=== PATIENT | female | born 1995 | race Caucasian/White ===

== ENCOUNTER 2020-06-14 08:44 | Emergency (ER) | payer OTHER, MEDICAID, SELFPAY ==
[2020-06-14 08:54] VITALS: BP 151/100; PULSE 114; RESP 19; TEMP 36.8; O2SAT 100; BMI 21.4
--- NOTE | 2020-06-14 09:18 | ED_ITS ---
HPI - Ear Problem General Chief complaint: Ear Stated complaint: left ear infection x1 week/has drops Time Seen by Provider: 06/14/20 09:09 Source: patient Mode of arrival: Ambulatory Limitations: no limitations History of Present Illness HPI Narrative: Patient is a 25-year-old female who presents with left ear pain ongoing for 1 week. She initially was seen and evaluated at [facility] for otitis externa and she was started on ear drops on June 10. She continues to have severe pain. Sometimes it is reproducible by palpation and sometimes not. She denies any fever. Related Data Previous Rx's Medication Instructions Recorded amoxicillin 500 mg PO TID 7 Days #21 cap 06/14/20 Review of Systems Review of Systems ROS Unobtainable: All systems reviewed & are unremarkable except as noted in HPI and below Constitutional Constitutional: Denies chills, Denies fever(s) and Denies frequent falls ENT Ears, Nose, Mouth, and Throat: Reports as per HPI and Denies dizziness Cardiovascular Cardiovascular: Denies chest pain, Denies irregular heart rhythm, Denies lightheadedness, Denies palpitations, Denies dyspnea, Denies dyspnea on exertion and Denies orthopnea Respiratory Respiratory: Denies cough, Denies dyspnea, Denies dyspnea on exertion and Denies wheezing Gastrointestinal Gastrointestinal: Denies abdominal pain, Denies change in bowel habits, Denies diarrhea, Denies nausea and Denies vomiting Musculoskeletal Musculoskeletal: Denies back pain, Denies deformity and Denies numbness Integumentary/Breasts Skin/Breast: Denies pruritus, Denies erythema, Denies rash and Denies wounds Neurologic Neurologic: Denies behavioral changes, Denies confusion, Denies dizziness, Denies frequent falls and Denies numbness Psychiatric Psychiatric: Denies behavioral changes and Denies confusion Endocrine Endocrine: Denies palpitations Allergic/Immunologic Allergic/Immunologic: Denies wheezing Patient History Social History Smoking Status: Current every day smoker Smoking Status: Current every day smoker alcohol intake frequency: holidays/special occasions only Substance Use Type: does not use Exam Initial Vital Signs Initial Vital Signs: Vital Signs Temperature 98.2 F 06/14/20 08:54 Pulse Rate 114 H 06/14/20 08:54 Respiratory Rate 19 06/14/20 08:54 Blood Pressure 151/100 H 06/14/20 08:54 Pulse Oximetry 100 06/14/20 08:54 GENERAL: Well-appearing, well-nourished and in no acute distress. HEENT: Head atraumatic,EOMI, pupils reactive, face symmetric, moist mucous membranes EARS: Left ear has mild erythema with fluid behind the membrane no drainage in the canal or external otitis identified. Right ear is mildly erythematous again with no drainage in canal CARDIOVASCULAR: Regular rate and rhythm without murmurs, rubs or gallops. RESPIRATORY: Breath sounds equal bilaterally, no wheezes rales or rhonchi. EXTREMITIES: Normal range of motion, no clubbing or edema. Neurovascularly intact NEUROLOGICAL: Alert and oriented x4.Normal gait and speech. SKIN: Warm, dry, no laceration, no petechiae, no rashes or lesions. Scores ABCD2 Citation: Lancet. 2006Nov 01;369(4730):238-87. Validation and refinement of scores to predict very early stroke risk after tr ansient ischaemic attack. Loretta SC1, Allison PM, Maggie MN, Kris MF, Chrystal JS, Jeromy AL, Van S. Course Vital Signs Vital signs: Vital Signs - 8 hr 06/14/20 08:54 06/14/20 09:24 06/14/20 09:31 Temperature 98.2 F Pulse Rate 114 H 89 89 Respiratory Rate 19 18 Blood Pressure 151/100 H 108/71 Pulse Oximetry 100 100 Discharge Plan Departure Patient Disposition: Home Clinical Impression: Otitis media Qualifiers: Otitis media type: suppurative Chronicity: acute Laterality: left Spontaneous tympanic membrane rupture: without spontaneous rupture Discharge Date/Time: 06/14/20 09:32 Instructions: Middle Ear Infection Activity Restrictions/Additional Instructions: *You have been diagnosed with left ear infection *What to do: Recommend finishing your ear drops as previously prescribed, do not stick anything in years including Q-tips *Continue to take medications as directed Amoxicillin 500 mg 3 times a day for 7 days *Follow up with your primary care provider in 2-3 days *Return to ER if you should have increased pain, bleeding, fever or any new, worsening or concerning symptoms Prescriptions: New amoxicillin 500 mg capsule 500 mg PO TID 7 Days Qty: 21 RF: 0 Referrals: Chloe Macario MD [Primary Care Provider] -
[2020-06-14 09:24] VITALS: PULSE 89
[2020-06-14 09:31] VITALS: BP 108/71; PULSE 89; RESP 18; O2SAT 100
== END 2020-06-14 09:32 | disposition home or self-care (01) ==
PROVIDERS: Emergency Provider Emergency Medicine; PCP Family Medicine
DX: H66.92 Otitis media, unspecified, left ear (principal)
CPT/HCPCS: 99281

== ENCOUNTER 2020-08-23 08:23 | Emergency (ER) | payer OTHER, MEDICAID, SELFPAY ==
[2020-08-23 08:32] VITALS: BP 136/97; PULSE 101; RESP 16; TEMP 36.8; O2SAT 97; BMI 21.2
--- NOTE | 2020-08-23 08:34 | ED_ITS ---
HPI - Ear Problem General Chief complaint: Ear Stated complaint: left side of jaw and ear pain 6-10 x2 months Time Seen by Provider: 08/23/20 08:34 Source: patient and old records reviewed Mode of arrival: Ambulatory Limitations: no limitations History of Present Illness HPI Narrative: Patient is a 25-year-old Female who presents with left ear pain ongoing for 2 months. She was diagnosed with otitis media and otitis in June. She was placed on otic drops and amoxicillin. She said the pain actually did improve mostly however she continues to feel like there is fluid and pressure behind her left ear. She does have some hearing loss. She denies any bone pain she has no tendinitis. She is able to rub her ear to see if it helps. She tries pop in her ears frequently but nothing seems to help. She den ies any fevers chills or cough. He has been taking Tylenol and ibuprofen as needed for pain she has tried Benadryl past. Location: left ear Duration: constant Severity: mild Review of Systems Review of Systems Narrative: GENERAL: Denies chills,fever HEENT: Left ear pain Denies throat pain RESPIRATORY: Denies dyspnea, cough, wheezing CARDIOVASCULAR: Denies chest pain, palpitations GASTROINTESTINAL: Denies nausea, vomiting MUSCULOSKELETAL: Denies extremity pain, injury SKIN: No rash, no laceration, no pruritus NEUROLOGIC: Denies weakness, dizziness, headache, numbness 8 point review of systems is negative except for those stated above and HPI Patient History Social History Smoking Status: Current every day smoker Smoking Status: Current every day smoker alcohol intake frequency: holidays/special occasions only Substance Use Type: does not use Exam Initial Vital Signs Initial Vital Signs: Vital Signs Temperature 98.3 F 08/23/20 08:32 Pulse Rate 101 H 08/23/20 08:32 Respiratory Rate 16 08/23/20 08:32 Blood Pressure 136/97 H 08/23/20 08:32 Pulse Oximetry 97 08/23/20 08:32 GENERAL: Well-appearing, well-nourished and in no acute distress. HEENT: Head atraumatic,EOMI, pupils reactive, face symmetric, moist mucous membranes EARS: Tympanic membranes visualized, no erythema or bulging, no hemotympanum. She is nontender over her mastoid on the left. No cervical lymphadenopathy. She does seem to be tender anteriorly but she has no drainage in her cannal CARDIOVASCULAR: Regular rate and rhythm without murmurs, rubs or gallops. RESPIRATORY: Breath sounds equal bilaterally, no wheezes rales or rhonchi. EXTREMITIES: Normal range of motion, no clubbing or edema. Neurovascularly intact NEUROLOGICAL: Alert and oriented x4 SKIN: Warm, dry, no laceration, no petechiae, no rashes or lesions. Course Vital Signs Vital signs: Vital Signs - 8 hr 08/23/20 08:32 Temperature 98.3 F Pulse Rate 101 H Respiratory Rate 16 Blood Pressure 136/97 H Pulse Oximetry 97 Medical Decision Making MDM Narrative Medical decision making narrative: The patient is really nontender over her mastoid. I have palpated quite extensively. She has no cervical lymphadenopathy, fever or other infectious symptoms. The ear itself does not appear to be infected. It sounds as though she has fluid build but no infection. I discussed all findings with the patient, Education has been performed regarding treatment plan, diagnosis, warning signs and symptoms and all concerns have been addressed. Verbally agree with and understood all of the above. Discharge Plan Departure Patient Disposition: Home Clinical Impression: Otitis media Qualifiers: Otitis media type: unspecified nonsuppurative Laterality: left Qualified Code(s): H65.92 - Unspecified nonsuppurative otitis media, left ear Instructions: Middle Ear Infections (Alternative Therapy), Middle Ear Infection Activity Restrictions/Additional Instructions: *You have been diagnosed with left ear pain *What to do: At this time you do not need antibiotics. You still have a fluid buildup behind your ear drum which is causing your pain. I recommend [id number] allergy medicine such as Claritin, Alicja, Zyrtec or Benadryl. You may also try Sudafed *Continue to take medications as directed *Follow up with your primary care provider in 2-3 days *Return to ER if you should have fever, increasing pain, pain in your bone, drainage, ringing in ear or any new, worsening or concerning symptoms Referrals: Chloe Macario MD [Primary Care Provider] -
[2020-08-23 08:57] VITALS: BP 112/69; PULSE 81; RESP 18; O2SAT 98
== END 2020-08-23 08:58 | disposition home or self-care (01) ==
PROVIDERS: Emergency Provider Emergency Medicine; PCP Family Medicine
DX: H65.92 Unspecified nonsuppurative otitis media, left ear (principal)
CPT/HCPCS: 99281